=== PATIENT | female | born 1995 | race Two or more races ===

== ENCOUNTER 2020-11-24 20:54 | Emergency (ER) | payer OTHER ==
[~2020-11-24] VITALS: Ht 157.5 cm; Wt 67.6 kg
[2020-11-25 00:41] VITALS: BP 140/87
[2020-11-25 01:34] LABS: Hepatitis B Surface Antibody Negative
[2020-11-25 01:35] LABS: Hepatitis B Surface Antigen Negative (Negative)
== END 2020-11-25 01:03 | disposition home or self-care (01) ==
LOC: EEVIPCON 21:00 → ER 21:00
DX: S61.502A Unspecified open wound of left wrist, initial encounter (principal); X58.XXXA Exposure to other specified factors, initial encounter; Y93.89 Activity, other specified; Y92.89 Other specified places as the place of occurrence of the external cause; Y99.8 Other external cause status
CPT/HCPCS: 36415; 86703; 86706; 86803; 87340

== ENCOUNTER → 2021-02-18 | Outpatient (CLI) | payer OTHER ==
[2021-02-18 14:33] LABS: Hepatitis B Surface Antibody Positive
[2021-02-18 15:40] LABS: Hepatitis B Surface Antigen Negative (Negative)
== END | disposition home or self-care (01) ==
LOC: LAB 13:40
PROVIDERS: ATTEND Nurse Practitioner
DX: Z77.21 Contact with and (suspected) exposure to potentially hazardous body fluids (principal)
CPT/HCPCS: 36415; 86703; 86706; 86803; 87340

== ENCOUNTER → 2021-09-17 | Outpatient (CLI) | payer OTHER | END | disposition home or self-care (01) | LOC: LAB 09:56 | PROVIDERS: ATTEND Nurse Practitioner | DX: Z77.21 Contact with and (suspected) exposure to potentially hazardous body fluids (principal) | CPT/HCPCS: 36415; 86703; 86706; 86803; 87340 ==

== ENCOUNTER → 2021-11-26 | Outpatient (CLI) | payer OTHER | END | disposition home or self-care (01) | LOC: LAB 12:26 | PROVIDERS: ATTEND Nurse Practitioner | DX: Z77.29 Contact with and (suspected) exposure to other hazardous substances (principal) | CPT/HCPCS: 36415; 86703; 86706; 86803; 87340 ==